=== PATIENT | male | born 1970 | race Caucasian/White ===

== ENCOUNTER 2018-12-24 11:00 | Emergency (ER) | payer MEDICARE, OTHER ==
--- NOTE | 2018-12-24 11:57 | EDM.PDOC ---
<Berhane Wang - Last Filed: 12/24/18 11:48> ED HPI GENERAL MEDICAL PROBLEM - General Chief Complaint: Upper Extremity Injury/Pain Stated Complaint: BURN ON ELBOW INFECTED Time Seen by Provider: 12/24/18 11:25 Source of Information: Reports: Family (Mother, patient has down syndrome) History Limitations: Reports: No Limitations - History of Present Illness INITIAL COMMENTS - FREE TEXT/NARRATIVE: Apolinar Mariee is a 48 year old male who presents to the ED with concerns of infection to an elbow injury. His mother is his historian. Three weeks ago the patient fell in a parking lot in [place], where they are originally from. They are here in [place] visiting family. Mom is concerned that the wound on his elbow is infected. After the fall they went in to see their primary care provider in [place] and was given a Silver Sulfadine cream because the wound blistered like a burn. They kept apply that for the next week and a half with no improvement. On 12/19/2018 they went to the [place] walk-in [facility] and was also prescribed a ten day course of Doxycycline and more burn cream. He does have gait instability and uses a walker to get around but still occasionally falls. He did fall yesterday and mom noted some increased swelling and redness. Left Elbow Pain Score (Numeric/FACES): 4 - Related Data Allergies Allergy/AdvReac Type Severity Reaction Status Date / Time No Known Allergies Allergy Verified 12/24/18 11:05 Home Meds: Home Meds Doxycycline [Vibramycin] 100 mg PO BID 12/24/18 [History] Silver Sulfadiazine [Silvadene 1% Cream 20 GM] 1 applic TOP ASDIRECTED 12/24/18 [History] Past Medical History HEENT History: Reports: Impaired Vision Other HEENT History: wears glasses Respiratory History: Reports: Pneumonia, Recurrent, Sleep Apnea Other Respiratory History: cpap Other Endocrine/Metabolic History: downs syndrome - Past Surgical History GI Surgical History: Reports: Hernia Repair/Other Musculoskeletal Surgical History: Reports: Arthroscopic Knee Social & Family History - Tobacco Use Smoking Status *Q: Never Smoker - Caffeine Use Caffeine Use: Reports: Soda - Recreational Drug Use Recreational Drug Use: No Review of Systems - Review of Systems Constitutional: Reports: Chills (Occasional chills but mother believes it's due to [place] weather) Respiratory: Reports: No Symptoms Cardiovascular: Reports: No Symptoms Musculoskeletal: Reports: No Symptoms Skin: Reports: Wound ED EXAM, GENERAL - Physical Exam Exam Limited By: No Limitations General Appearance: Alert, WD/WN, No Apparent Distress Eye Exam: Bilateral Eye: Normal Inspection Respiratory/Chest: No Respiratory Distress, Lungs Clear, Normal Breath Sounds, No Accessory Muscle Use, Chest Non-Tender Cardiovascular: Normal Peripheral Pulses, Regular Rate, Rhythm, No Edema, No Gallop, No JVD, No Murmur, No Rub Peripheral Pulses: 2+: Radial (L), Radial (R) Extremities: Normal Inspection, Normal Range of Motion, Non-Tender, Normal Capillary Refill, No Pedal Edema Skin Exam: Warm, Dry, Intact, Normal Color, No Rash, Erythema (Mild erythema noted around wound), Wound/Incision (Large 4 cm healing wound noted on the left posterior arm near the elbow). No: Increased Warmth Course - Vital Signs Last Recorded V/S: Last Vital Signs Temp 97.4 F 12/24/18 11:06 Pulse 58 L 12/24/18 11:06 Resp 13 12/24/18 11:06 BP 139/74 12/24/18 11:06 Pulse Ox 100 12/24/18 11:06 Departure - Departure Disposition: Home, Self-Care 01 Clinical Impression: Abrasion of left elbow Qualifiers: Encounter type: subsequent encounter Qualified Code(s): S50.312D - Abrasion of left elbow, subsequent encounter - Discharge Information Instructions: Abrasion, [id number] Referrals: PCP,Not In Area [Primary Care Provider] - Forms: ED Department Discharge Additional Instructions: Apolinar has been evaluated in the ED today for his left elbow abrasion. The wound does appear to be healing appropriately, the purplish red border around it is a normal healing process. Furthering concern to be if the border would turn an angry red griggs color as this would suggest there is may be a more acute type infection going on. Please take the doxycycline as previously prescribed and use the Silvadene as needed on the wound. If he should run out of the Silvadene you may use triple antibiotic ointment to the wound bed itself. Do not use this on the skin around the wound. Recommend that you do not submerse the arm in water for prolonged amounts of time. If he should wish to go swimming you may obtain some gauze and a Tegaderm -like dressing from any retailer to provide wound coverage. Please return to the ED if his symptoms change or worsen <Sol Moreno - Last Filed: 12/24/18 12:07> ED HPI GENERAL MEDICAL PROBLEM - History of Present Illness INITIAL COMMENTS - FREE TEXT/NARRATIVE: I have read and reviewed the student's HPI and examined the patient and agree with SHERRILL Fernandez student. Review of Systems - Review of Systems Review Of Systems: See Below ED EXAM, GENERAL - Physical Exam Exam: See Below Course - Re-Assessments/Exams Free Text/Narrative Re-Assessment/Exam: 12/24/18 12:03 Patient presents to the ED for the evaluation of a left elbow abrasion. He is on doxycycline and his mother is applying Silvadene as needed for wound care. The wound appears to be healing appropriately with good margination on the borders. There is no obvious sign of acute cellulitis spreading from the wound borders. The mother was reassured of this fact and given general recommendations for further wound care. Departure - Departure Time of Disposition: 12:04 Condition: Fair - Discharge Information *PRESCRIPTION DRUG MONITORING PROGRAM REVIEWED*: No *COPY OF PRESCRIPTION DRUG MONITORING REPORT IN PATIENT GERBER: No
== END 2018-12-24 12:22 | disposition home or self-care (01) ==
LOC: JD.ED 11:00
DX: S50.312D Abrasion of left elbow, subsequent encounter (principal); W19.XXXD Unspecified fall, subsequent encounter
CPT/HCPCS: 99282; 99283

== ENCOUNTER 2019-07-03 07:45 | Emergency (ER) | payer MEDICARE, OTHER ==
[2019-07-03] MEDS ORDERED: Sodium Chloride 0.9% 10 ML Syringe FLUSH PRN (08:13)
--- NOTE | 2019-07-03 08:59 | CR ---
Chest: Two views of the chest were obtained. Comparison: No previous chest x-ray. Heart size and mediastinum are within normal limits. Lungs show no acute parenchymal change. Bony structures are within normal limits. Impression: 1. Nothing acute is appreciated on two-view chest x-ray. Diagnostic code #1
--- NOTE | 2019-07-03 09:12 | CT ---
Head CT Technique: Multiple axial sections through the brain were obtained. Intravenous contrast was not utilized. Comparison: No previous intracranial imaging is available. Findings: Ventricles along with basal cisterns and sulci over the convexities appear within normal limits for the patient's age. No abnormal parenchymal densities are seen. No evidence of intracranial hemorrhage. No midline shift or mass effect is seen. Bone window settings were reviewed which show no acute calvarial abnormality. Mastoid sinuses are clear. Paranasal sinuses are only minimally seen which appear clear. Impression: 1. Nothing acute is appreciated on noncontrast head CT exam. Diagnostic code #1
--- NOTE | 2019-07-03 09:32 | EDM.PDOC ---
ED HPI GENERAL MEDICAL PROBLEM - General Chief Complaint: Neurological Problem Stated Complaint: [facility] Time Seen by Provider: 07/03/19 08:02 Source of Information: Reports: Family, RN Notes Reviewed (Mother and father) - History of Present Illness INITIAL COMMENTS - FREE TEXT/NARRATIVE: 49-year-old male has been brought in by EMS after suffering a 2 minute seizure. He and his parents are traveling. He was sleeping in the same bed as his father. He had an about 2 minute generalized siezure. He did "turn blue, didn' t seem to be breathing well" so father helped him to the floor, did a few chest compressions. Upon EMS arrival the seizure was over. He was still drowsy, post ictal. He has not been recently ill. He did have a similar seizure about 2 months ago. He had pneumonia about that time and is reported to have had residual "fluid on his lung". - Related Data Allergies Allergy/AdvReac Type Severity Reaction Status Date / Time No Known Allergies Allergy Verified 07/03/19 07:58 Home Meds: Home Meds Acetaminophen [Tylenol Arthritis] 1 tab PO DAILY PRN 07/03/19 [History] Gluc 2KCl/Chondr/Gilberto Hy/Hy Ac [Glucosamine & Chondroitin Cap] 1 tab PO DAILY [History] Past Medical History HEENT History: Reports: Impaired Vision Other HEENT History: wears glasses Respiratory History: Reports: Pneumonia, Recurrent, Sleep Apnea Other Respiratory History: cpap Other Endocrine/Metabolic History: downs syndrome - Past Surgical History GI Surgical History: Reports: Hernia Repair/Other Musculoskeletal Surgical History: Reports: Arthroscopic Knee Social & Family History - Caffeine Use Caffeine Use: Reports: Soda ED ROS GENERAL - Review of Systems Review Of Systems: Unable To Obtain (Patient has Down's syndrome, awake but post ictal, not verbalizing much at time of my exam, what information I am getting was from his parents.) - Physical Exam Exam: See Below General Appearance: Other (awake, not verbalizing much at time of my exam but NAD) Eye Exam: Bilateral Eye: PERRL Throat/Mouth: Normal Inspection. No: Evidence of Tongue Biting Head Exam: Atraumatic. No: Facial Swelling Neck: Supple, Other (no JVD) Respiratory/Chest: No Respiratory Distress Cardiovascular: Regular Rate, Rhythm GI/Abdominal: Soft, Non-Tender Neuro Exam (Abbreviated): No Motor/Sensory Deficits, Other (awake, quiet) Extremities: Normal Inspection Skin Exam: Warm, Dry, Normal Color, No Rash Course - Vital Signs Last Recorded V/S: Last Vital Signs Temp 97.0 F 07/03/19 07:59 Pulse 76 07/03/19 07:59 Resp 16 07/03/19 07:59 BP 135/80 07/03/19 07:59 Pulse Ox 90 L 07/03/19 07:59 - Orders/Labs/Meds Labs: Laboratory Tests 07/03/19 07/03/19 Range/Units 08:59 08:59 WBC 4.49 (4.23-9.07) K/mm3 RBC 4.19 L (4.63-6.08) M/mm3 Hgb 13.6 L (13.7-17.5) gm/dl Hct 41.7 (40.1-51.0) % MCV 99.5 H (79.0-92.2) fl MCH 32.5 H (25.7-32.2) pg MCHC 32.6 (32.2-35.5) g/dl RDW Std Deviation 51.0 H (35.1-43.9) fL Plt Count 192 (163-337) K/mm3 MPV 9.4 (9.4-12.3) fl Neut % (Auto) 73.5 H (34.0-67.9) % Lymph % (Auto) 19.6 L (21.8-53.1) % [place] % (Auto) 5.3 (5.3-12.2) % Eos % (Auto) 0.7 L (0.8-7.0) Baso % (Auto) 0.9 (0.1-1.2) % Neut # (Auto) 3.30 (1.78-5.38) K/mm3 Lymph # (Auto) 0.88 L (1.32-3.57) K/mm3 [place] # (Auto) 0.24 L (0.30-0.82) K/mm3 Eos # (Auto) 0.03 L (0.04-0.54) K/mm3 Baso # (Auto) 0.04 (0.01-0.08) K/mm3 Sodium 138 (136-145) mEq/L Potassium 4.6 (3.5-5.1) mEq/L Chloride 104 (98-107) mEq/L Carbon Dioxide 28 (21-32) mEq/L Anion Gap 10.6 (5-15) BUN 25 H (7-18) mg/dL Creatinine 1.2 (0.7-1.3) mg/dL Est Cr Clr Drug Dosing TNP Estimated GFR (MDRD) > 60 (>60) mL/min BUN/Creatinine Ratio 20.8 H (14-18) Glucose 128 H (74-106) mg/dL Calcium 8.8 (8.5-10.1) mg/dL Total Bilirubin 0.4 (0.2-1.0) mg/dL AST 67 H (15-37) U/L ALT 75 H (16-63) U/L Alkaline Phosphatase 104 (46-116) U/L Total Protein 7.5 (6.4-8.2) g/dl Albumin 3.3 L (3.4-5.0) g/dl Globulin 4.2 gm/dL Albumin/Globulin Ratio 0.8 L (1-2) Meds: Medications Discontinued Medications Generic Name Dose Route Start Last Admin Trade Name Freq PRN Reason Stop Dose Admin Sodium Chloride 10 ml 07/03/19 08:13 Saline Flush FLUSH ASDIRECTED PRN Keep Vein Open - Re-Assessments/Exams Free Text/Narrative Re-Assessment/Exam: 07/07/19 09:01 labs relatively normal, head CT, CXR normal. resting comfortably while awaiting labs and CT report, discharge instr. as documented. Departure - Departure Time of Disposition: 10:49 Disposition: Home, Self-Care 01 Condition: Fair Clinical Impression: Seizure - Discharge Information Instructions: Seizure, Adult Referrals: PCP,Not In Area [Primary Care Provider] - Forms: ED Department Discharge Additional Instructions: Continue to encourage fluids to maintain hydration, eat regular meals and snacks, rest, increase activity as tolerated. Continue current medications. Have him see his regular medical provider when you do get back home early next week. Return to ED as needed.
== END 2019-07-03 12:30 | disposition home or self-care (01) ==
LOC: JD.ED 07:45
DX: R56.9 Unspecified convulsions (principal)
CPT/HCPCS: 36415; 70450; 70450-26; 71046; 71046-26; 80053; 85025; 99284-25